=== PATIENT | female | born 1965 | race Caucasian/White ===

== ENCOUNTER 2018-04-17 21:11 | Inpatient (IN) | payer OTHER ==
[~2018-04-17] VITALS: Ht 170.2 cm; Wt 128.8 kg
[2018-04-17 21:25] VITALS: Ht 170.2 cm; Wt 128.8 kg
[2018-04-17 22:12] LABS: BASOPHIL % 0.4 % (0-2); PLATELET COUNT 230 x10^3mcL (130-400)
[2018-04-17 22:14] LABS: RED CELL DISTRIBUTION WIDTH 16.9 % (11.5-14.5)
[2018-04-17 22:27] LABS: CALCIUM 8.9 mg/dL (8.5-10.1); CARBON DIOXIDE 29.7 mmol/L (21-32); CHLORIDE SERUM 104 mmol/L (98-107); CREATININE SERUM 0.9 mg/dL (0.6-1.0); GFR1 > 60 mL/min; GLUCOSE SERUM 104 mg/dL (74-106); POTASSIUM SERUM 3.3 mmol/L (3.5-5.1); SODIUM SERUM 139 mmol/L (136-145)
[2018-04-17 22:33] LABS: ALBUMIN 3.7 g/dL (3.4-5.0); ALKALINE PHOSPHATASE 90 U/L (46-116); ALT/SGPT 27 U/L (14-59); AST/SGOT 20 U/L (15-37); BILIRUBIN TOTAL 0.9 mg/dL (0.20-1.00); TOTAL PROTEIN, SERUM 8.4 g/dL (6.4-8.2)
[2018-04-18] MEDS ORDERED: CATAPRES0.1 MG PO (00:08)
[2018-04-18] MEDS ORDERED: COLACE100 MG PO (00:09)
[2018-04-18] MEDS ORDERED: DIG125 PO (00:10)
[2018-04-18] MEDS ORDERED: CORE25 PO (00:10)
[2018-04-18] MEDS ORDERED: DILTIAZEM HCL120 M2 PO (00:11)
[2018-04-18] MEDS ORDERED: NEU300 PO (00:12)
[2018-04-18] MEDS ORDERED: ELIQUIS5 MG PO (00:12)
[2018-04-18] MEDS ORDERED: ENALAPRIL MALEAT5 MG PO (00:12)
[2018-04-18] MEDS ORDERED: MOT600 PO (00:13)
[2018-04-18] MEDS ORDERED: [UNRECOGNIZED DRUG - OTHER] MC (00:13)
[2018-04-18] MEDS ORDERED: LASIX20 MG PO (00:14)
[2018-04-18] MEDS ORDERED: ROBAXIN-750750 MG PO (00:14)
[2018-04-18] MEDS ORDERED: MULTIVITAMIN1 SGL PO (00:15)
[2018-04-18] MEDS ORDERED: NIT0.3 SL (00:16)
[2018-04-18] MEDS ORDERED: NOR10T PO (00:16)
[2018-04-18] MEDS ORDERED: PROTONIX40 MG PO (00:16)
[2018-04-18] MEDS ORDERED: GOOD NEIGHBOR650 M2 PO (00:18)
[2018-04-18] MEDS ORDERED: VITAMIN C500 M6 PO (00:18)
[2018-04-18 00:54] LABS: microscopic required? YES; urine erythrocyte NEGATIVE (NEGATIVE)
[2018-04-18 01:02] LABS: AMPHETAMINE QUAL UR NONE DETECTED (See below)
[2018-04-18 01:07] LABS: CHOLESTEROL/HDL RATIO 4.3; MAGNESIUM 1.7 mg/dL (1.8-2.4); PHOSPHOROUS 3.6 mg/dL (2.5-4.9)
[2018-04-18 01:17] LABS: FREE T4 1.17 ng/dL (0.76-1.46); FREE THYROXINE INDEX 2.9 ug/dL (1.4-4.5); T4(THYROXINE) 8.2 ug/dL (4.7-13.3)
[2018-04-18 01:37] VITALS: BP 147/91
[2018-04-18 02:24] LABS: T3 TOTAL 1.06 ng/mL
[2018-04-18 05:56] LABS: BASOPHIL % 0.2 % (0-2); PLATELET COUNT 236 x10^3mcL (130-400)
[2018-04-18 06:42] LABS: CALCIUM 8.8 mg/dL (8.5-10.1); CARBON DIOXIDE 29.2 mmol/L (21-32); CHLORIDE SERUM 102 mmol/L (98-107); CREATININE SERUM 0.8 mg/dL (0.6-1.0); GFR1 > 60 mL/min; GLUCOSE SERUM 110 mg/dL (74-106); MAGNESIUM 1.8 mg/dL (1.8-2.4); POTASSIUM SERUM 3.8 mmol/L (3.5-5.1); SODIUM SERUM 140 mmol/L (136-145)
[2018-04-18 06:46] LABS: RED CELL DISTRIBUTION WIDTH 16.8 % (11.5-14.5)
[2018-04-18 06:49] VITALS: BP 171/93
[2018-04-18 08:25] VITALS: BP 132/73
[2018-04-18 12:17] VITALS: BP 148/86
[2018-04-18] MEDS ORDERED: METFORMIN HYDR500 M1 PO (13:40)
[2018-04-18] MEDS ORDERED: SYNTHROID0.125 MG PO (14:52)
[2018-04-18] MEDS ORDERED: LAC PO (15:05)
[2018-04-18] MEDS ORDERED: KEFLEX500 M1 PO (15:05)
[2018-04-18 15:19] VITALS: BP 148/86
== END 2018-04-18 20:06 | DRG 199 ==
LOC: ED 21:11 → DU 04-18 00:14
PROVIDERS: Emergency Medicine; Internal Medicine
DX: I16.0 Hypertensive urgency (principal); I50.33 Acute on chronic diastolic (congestive) heart failure; E66.01 Morbid (severe) obesity due to excess calories; E83.42 Hypomagnesemia; I11.0 Hypertensive heart disease with heart failure; E11.9 Type 2 diabetes mellitus without complications; I48.91 Unspecified atrial fibrillation; I83.028 Varicose veins of left lower extremity with ulcer other part of lower leg; L97.821 Non-pressure chronic ulcer of other part of left lower leg limited to breakdown of skin; N39.0 Urinary tract infection, site not specified; E78.5 Hyperlipidemia, unspecified; E03.9 Hypothyroidism, unspecified; E87.6 Hypokalemia; Z68.41 Body mass index [BMI] 40.0-44.9, adult; Z86.711 Personal history of pulmonary embolism; Z86.718 Personal history of other venous thrombosis and embolism; Z79.01 Long term (current) use of anticoagulants; Z88.5 Allergy status to narcotic agent; Z79.899 Other long term (current) drug therapy
CPT/HCPCS: 83880; 84439; 85378; J1940; J7030; J7620; Q0092